=== PATIENT | male | born 2000 | race Caucasian/White ===

== ENCOUNTER 2019-06-16 16:49 | Emergency (ER) | payer BC, SELFPAY ==
[2019-06-16] MEDS ORDERED: NA CHLORIDE 0.9% 500 ML ONE (17:54)
[2019-06-16 18:20] LABS: Absolute Lymphocytes (CBC) 2.4 K/uL (0.7-4.9); Basophils % 0.5 % (0-1.3); Hematocrit 43.7 % (39.6-49.0); MPV 8.6 fL (7.6-11.3); RBC Red Blood Cell Count 5.06 M/uL (4.33-5.43)
[2019-06-16 18:32] LABS: ALT/SGPT 19 U/L (12-78); AST/SGOT 14 U/L (15-37); Albumin 4.4 g/dL (3.4-5.0); Alkaline Phosphatase 114 U/L (45-117); BUN Blood Urea Nitrogen 14 mg/dL (7-18); Bicarbonate 29 mmol/L (21-32); Bilirubin Direct < 0.1 mg/dL (0-0.2); Bilirubin Total 0.2 mg/dL (0.2-1.0); Glucose Level 97 mg/dL (74-106); Potassium 3.6 mmol/L (3.5-5.1); Sodium Level 141 mmol/L (136-145)
[2019-06-16 18:32] LABS: Urine Blood TRACE (NEG); Urine Glucose NEGATIVE (NEG); Urine Protein NEGATIVE (NEG); Urine Specific Gravity 1.025 (1.005-1.030); Urine pH 6.5 (5.0-7.0)
--- NOTE | 2019-06-16 18:40 | RAD REPORT ---
EXAM DESCRIPTION: CT - Stone Protocol - 06/16/2019 6:11 pm CLINICAL HISTORY: Right flank/CVA pain COMPARISON: No comparisons TECHNIQUE: Axial 5 mm thick images were obtained without oral or IV contrast. The [id number] span s the entirety of the system including uppermost abdomen and lung bases. All CT scans are performed using dose optimization technique as appropriate and may include automated exposure control or mA/KV adjustment according to patient size. FINDINGS: No hydronephrosis is present and no obstructing ureteral calculi. No suspicious renal mass es. Isodense masses and pyelonephritis are not excluded on a stone protocol CT scan. No significant a drenal finding. No urinary bladder suspicious finding. Imaged portions of the liver, spleen and pancreas show no suspicious findings on non-contrast imaging . No gallbladder or biliary tree abnormality identified. No suspicious bowel findings. Appendix is prominent in size but filled with air and stool. No wall th ickening or stranding in the adjacent fat. Mesenteric lymph nodes are seen in the central mesenteries and right lower quadrant. No hernia, mass or bulky lymphadenopathy noted. No free air, free fluid or inflammatory stranding. No significant bony abnormality. IMPRESSION: No hydronephrosis, obstructing calculus or acute finding. Isodense masses and pyelonephritis are not excluded on stone protocol technique. No acute appendicitis findings. Small mesenteric lymph nodes are present which could indicate mesente donte adenitis or nonspecific enteritis.
--- NOTE | 2019-06-16 19:29 | ER ---
Nurse's Notes [facility] Name: Momo Zimmerman Age: 19 yrs Sex: Male : 2000 Arrival Date: 06/16/2019 Time: 16:51 Bed 19 Private MD: Diagnosis: Right Flank Pain, adenitis;Hematuria Presentation: 06/15 17:10 Chief complaint: Patient states: right mid back pain that began 2 days ago. Pt reports aa5 last void was last night, pt states "I don't even feel pressure like I have to pee". Coronavirus screen: Proceed with normal triage. Patient denies a cough. Patient denies shortness of breath or difficulty breathing. Patient denies measured and/or subjective temperature greater than 100.4F prior to today's visit. Patient denies travel on a cruise ship or to a country the [facility] currently lists as an affected area. Patient denies contact with known and/or suspected case of COVID-19. Ebola Screen: Patient negative for fever greater than or equal to 101.5 degrees Fahrenheit, and additional compatible Ebola Virus Disease symptoms. Initial Sepsis Screen: Does the patient meet any 2 criteria? No. Patient's initial sepsis screen is negative. Does the patient have a suspected source of infection? No. Patient's initial sepsis screen is negative. Risk Assessment: Do you want to hurt yourself or someone else? Patient reports no desire to harm self or others. Onset of symptoms was June 2019. 17:10 Method Of Arrival: Ambulatory aa5 17:10 Acuity: JESS 3 aa5 Historical: - Allergies: 17:12 No Known Allergies; aa5 - PMHx: 17:12 None; aa5 - PSHx: 17:12 None; aa5 - Immunization history:: Flu vaccine is not up to date. - Social history:: Smoking status: Patient denies any tobacco usage or history of. Screenin:28 Abuse screen: Denies threats or abuse. Nutritional screening: No deficits noted. rb1 Tuberculosis screening: No symptoms or risk factors identified. Fall Risk None identified. Assessment: 17:28 General: Appears in no apparent distress. comfortable, Behavior is calm, cooperative, rb1 Denies fever. Pain: Complains of pain in right flank Pain began this morning. Neuro: Level of Consciousness is awake, alert, obeys commands, Oriented to person, place, time, situation. Cardiovascular: Capillary refill < 3 seconds is sluggish in bilateral fingers. Respiratory: Airway is patent Respiratory effort is even, unlabored, Respiratory pattern is regular, symmetrical. GI: No signs and/or symptoms were reported involving the gastrointestinal system. : Reports He has not urinated today. Derm: Skin is pink, warm \\T\\ dry. 18:28 Reassessment: Patient appears in no apparent distress at this time. Patient and/or rb1 family updated on plan of care and expected duration. Pain level reassessed. Patient is alert, oriented x 3, equal unlabored respirations, skin warm/dry/pink. 19:10 Reassessment: Patient appears in no apparent distress at this time. Patient and/or wh family updated on plan of care and expected duration. Pain level reassessed. Patient is alert, oriented x 3, equal unlabored respirations, skin warm/dry/pink. 19:45 Reassessment: Patient appears in no apparent distress at this time. No changes from previously documented assessment. Patient and/or family updated on plan of care and expected duration. Pain level reassessed. Patient is alert, oriented x 3, equal unlabored respirations, skin warm/dry/pink. Provider at bedside explaining POC. Vital Signs: 17:10 BP 124 / 63; Pulse 83; Resp 18 S; Temp 99.3(O); Pulse Ox 100% on R/A; Weight 67.59 kg aa5 (R); Height 5 ft. 10 in. (177.80 cm) (R); Pain 5/10; 18:37 BP 105 / 53; Pulse 65; Resp 17; Pulse Ox 100% on R/A; Pain 2/10; rb1 19:45 BP 120 / 80; Pulse 81; Resp 18; Pulse Ox 100% on R/A; wh 17:10 Body Mass Index 21.38 (67.59 kg, 177.80 cm) aa5 ED Course: 16:51 Patient arrived in ED. as 17:10 Arm band placed on. aa5 17:12 Triage completed. aa5 17:26 Evans Marshall MD is Attending Physician. kdr 17:27 Lauren Samayoa, CLAUDIO is Primary Nurse. rb1 17:28 Patient has correct armband on for positive identification. Bed in low position. Call rb1 light in reach. Side rails up X 1. Pulse ox on. NIBP on. 18:00 Inserted saline lock: 22 gauge in right antecubital area, using aseptic technique. rb1 Blood collected. 18:17 CT Stone Protocol In Process Unspecified. EDCT 19:55 No provider procedures requiring assistance completed. IV discontinued, intact, bleeding controlled, No redness/swelling at site. Administered Medications: 18:00 Drug: NS 0.9% 500 ml Route: IV; Rate: bolus; Site: right antecubital; [facility] 19:53 Follow up: Response: No adverse reaction; IV Status: Completed infusion 19:53 Drug: TORadol - Ketorolac 15 mg Route: IVP; Site: right antecubital; 20:03 Follow up: Response: No adverse reaction Outcome: 19:28 Discharge ordered by . [facility] 19:55 Discharged to home ambulatory. 19:55 Condition: stable 19:55 Discharge instructions given to patient, Instructed on discharge instructions, follow up and referral plans. no drinking with medication, no driving heavy equipment, medication usage, POC Demonstrated understanding of instructions, follow-up care, medications, POC Prescriptions given X 2. 20:03 Patient left the ED. Signatures: Dispatcher [employer] EDCT Evans Marshall MD MD kdr Martinez, Amelia as Calderon, Audri, RN RN aa5 Lauren Samayoa, RN RN rb1 Becky Sweet
--- NOTE | 2019-06-16 19:29 | EDPHYS ---
Physician Documentation [facility] Name: Momo Zimmerman Age: 19 yrs Sex: Male : 2000 Arrival Date: 06/16/2019 Time: 16:51 Bed 19 Private MD: ED Physician Evans Marshall HPI: 06/15 19:31 This 19 yrs old Male presents to ER via Ambulatory with complaints of Back kdr Pain. 19:31 The patient presents with pain that is acute, with no known mechanism of injury. The kdr symptoms are located in the Right flank. Onset: The symptoms/episode began/occurred gradually, 2 day(s) ago. The pain does not radiate. Associated signs and symptoms: The patient has no apparent associated signs or symptoms. The problem was sustained from unknown cause. Modifying factors: The patient symptoms are alleviated by nothing, the patient symptoms are aggravated by any movement, movement. Severity of symptoms: At their worst the symptoms were mild, in the emergency department the symptoms are unchanged. The patient has not experienced similar symptoms in the past. The patient has not recently seen a physician. Historical: - Allergies: 17:12 No Known Allergies; aa5 - PMHx: 17:12 None; aa5 - PSHx: 17:12 None; aa5 - Immunization history:: Flu vaccine is not up to date. - Social history:: Smoking status: Patient denies any tobacco usage or history of. ROS: 19:31 Constitutional: Negative for fever, chills, and weight loss, Eyes: Negative for injury, kdr pain, redness, and discharge, Neck: Negative for injury, pain, and swelling, Cardiovascular: Negative for chest pain, palpitations, and edema, Respiratory: Negative for shortness of breath, cough, wheezing, and pleuritic chest pain, Abdomen/GI: Negative for signficanat abdominal pain, nausea, vomiting, diarrhea, and constipation, He was ,mildly tender in right flank and right lower Quad Back: Negative for injury - he does c/o pain to right flank and low back MS/Extremity: Negative for injury and deformity, Skin: Negative for injury, rash, and discoloration, Neuro: Negative for headache, weakness, numbness, tingling, and seizure activity. Psych: Negative for depression, anxiety, suicide ideation, homicidal ideation, and hallucinations, Allergy/Immunology: Negative for hives, rash, and allergies, Endocrine: Negative for neck swelling, polydipsia, polyuria, polyphagia, and marked weight changes, Hematologic/Lymphatic: Negative for swollen nodes, abnormal bleeding, and unusual bruising. Exam: 19:31 Constitutional: This is a well developed, well nourished patient who is awake, alert, kdr and in no acute distress. Head/Face: Normocephalic, atraumatic. Eyes: Pupils equal round and reactive to light, extra-ocular motions intact. Lids and lashes normal. Conjunctiva and sclera are non-icteric and not injected. Cornea within normal limits. Periorbital areas with no swelling, redness, or edema. Neck: Trachea midline, no thyromegaly or masses palpated, and no cervical lymphadenopathy. Supple, full range of motion without nuchal rigidity, or vertebral point tenderness. No Meningismus. Chest/axilla: Normal chest wall appearance and motion. Nontender with no deformity. No lesions are appreciated. Cardiovascular: Regular rate and rhythm with a normal S1 and S2. No gallops, murmurs, or rubs. Normal PMI, no JVD. No pulse deficits. Respiratory: Lungs have equal breath sounds bilaterally, clear to auscultation and percussion. No rales, rhonchi or wheezes noted. No increased work of breathing, no retractions or nasal flaring. Skin: Warm, dry with normal turgor. Normal color with no rashes, no lesions, and no evidence of cellulitis. MS/ Extremity: Pulses equal, no cyanosis. Neurovascular intact. Full, normal range of motion. Neuro: Awake and alert, GCS 15, oriented to person, place, time, and situation. Cranial nerves II-XII grossly intact. Motor strength 5/5 in all extremities. Sensory grossly intact. Cerebellar exam normal. Normal gait. Psych: Awake, alert, with orientation to person, place and time. Behavior, mood, and affect are within normal limits. 19:31 Abdomen/GI: Inspection: abdomen appears normal, Bowel sounds: normal, Palpation: soft, mild abdominal tenderness, in the posterior aspect of right lateral abdomen and right lower quadrant, mass, is not appreciated, rebound tenderness, is not appreciated. Vital Signs: 17:10 BP 124 / 63; Pulse 83; Resp 18 S; Temp 99.3(O); Pulse Ox 100% on R/A; Weight 67.59 kg aa5 (R); Height 5 ft. 10 in. (177.80 cm) (R); Pain 5/10; 18:37 BP 105 / 53; Pulse 65; Resp 17; Pulse Ox 100% on R/A; Pain 2/10; rb1 19:45 BP 120 / 80; Pulse 81; Resp 18; Pulse Ox 100% on R/A; wh 17:10 Body Mass Index 21.38 (67.59 kg, 177.80 cm) aa5 MDM: 19:28 Patient medically screened. kdr 19:31 Data reviewed: vital signs, nurses notes, lab test result(s), radiologic studies. kdr Counseling: I had a detailed discussion with the patient and/or guardian regarding: the historical points, exam findings, and any diagnostic results supporting the discharge/admit diagnosis, lab results, radiology results, the need for outpatient follow up. 06/15 17:40 Order name: Basic Metabolic Panel; Complete Time: 19:27 kdr 06/15 17:40 Order name: CBC with Diff; Complete Time: 19:27 kdr 06/15 17:40 Order name: Creatinine for Radiology; Complete Time: 19:27 kdr 06/15 17:40 Order name: Hepatic Function; Complete Time: 19:27 kdr 06/15 17:40 Order name: CT Stone Protocol; Complete Time: 19:27 kdr 06/15 18:30 Order name: Urine Dipstick--Ancillary (enter results); Complete Time: 19:27 em1 06/15 17:40 Order name: IV Saline Lock; Complete Time: 18:07 kdr 06/15 17:40 Order name: Labs collected and sent; Complete Time: 18:07 kdr 06/15 17:40 Order name: Urine Dipstick-Ancillary (obtain specimen); Complete Time: 18:23 kdr Administered Medications: 18:00 Drug: NS 0.9% 500 ml Route: IV; Rate: bolus; Site: right antecubital; rb1 19:53 Follow up: Response: No adverse reaction; IV Status: Completed infusion wh 19:53 Drug: TORadol - Ketorolac 15 mg Route: IVP; Site: right antecubital; wh 20:03 Follow up: Response: No adverse reaction Disposition: 06/16/19 19:28 Discharged to Home. Impression: Right Flank Pain, adenitis, Hematuria. - Condition is Stable. - Discharge Instructions: Hematuria, Adult, Back Pain, Adult, [id number], Flank Pain, [id number]. - Prescriptions for Ibuprofen 600 mg Oral Tablet - take 1 tablet by ORAL route every 6 hours As needed take with food; 15 tablet. Tramadol 50 mg Oral Tablet - take 1 tablet by ORAL route every 8 hours as needed; 12 tablet. - Medication Reconciliation Form, Thank You Letter, Prescription Opioid Use form. - Follow up: Private Physician; When: 2 - 3 days; Reason: If symptoms return, Further diagnostic work-up, Recheck today's complaints, Continuance of care, Re-evaluation by your physician. - Problem is new. - Symptoms have improved. Signatures: Dispatcher [employer] EDMS Evans Marshall MD MD kdr Edwige Wade RN RN aa5 Lauren Samayoa RN RN rb1 Becky Sweet Corrections: (The following items were deleted from the chart) 19:28 19:28 06/16/2019 19:28 Discharged to Home. Impression: Right Flank Pain, adenitis. kdr Condition is Stable. Forms are Medication Reconciliation Form, Thank You Letter, Antibiotic Education, Prescription Opioid Use. Follow up: Private Physician; When: 2 - 3 days; Reason: If symptoms return, Further diagnostic work-up, Recheck today's complaints, Continuance of care, Re-evaluation by your physician. Problem is new. Symptoms have improved. kdr 20:03 19:28 06/16/2019 19:28 Discharged to Home. Impression: Right Flank Pain, adenitis; wh Hematuria. Condition is Stable. Forms are Medication Reconciliation Form, Thank You Letter, Antibiotic Education, Prescription Opioid Use. Follow up: Private Physician; When: 2 - 3 days; Reason: If symptoms return, Further diagnostic work-up, Recheck today's complaints, Continuance of care, Re-evaluation by your physician. Problem is new. Symptoms have improved. kdr
[2019-06-16] MEDS ORDERED: KETOROLAC 30 MG/ML INJ ONE (19:55)
[2019-06-17 06:52] VITALS: TEMP 99.3; O2SAT 100
[2019-06-17 06:55] VITALS: BP 120/80
== END 2019-06-16 20:03 | disposition home or self-care (01) ==
LOC: ER 16:49
DX: I88.9 Nonspecific lymphadenitis, unspecified (principal); R31.9 Hematuria, unspecified
CPT/HCPCS: 36415; 74176; 76377; 80048; 80076; 81003; 85025; 96361; 96374; 99284; J7040